=== PATIENT | male | born 1985 | race American Indian/Alaskan Native ===

== ENCOUNTER 2021-04-22 22:02 | Emergency (ER) | payer SELFPAY ==
[2021-04-22 23:16] LABS: Basophils % (Auto) 0.3 % (0.0-1.8); Eosinophils # (Auto) 0.1 K/mm3 (0.0-0.4); Eosinophils % (Auto) 0.6 % (0.0-4.3); Hematocrit 36.6 % (35.5-45.6); Hemoglobin 11.5 gm/dl (11.8-15.2); Lymphocytes # (Auto) 2.2 K/mm3 (1.2-5.4); Lymphocytes % (Auto) 23.7 % (13.4-35.0); Mean Corpuscular HGB Conc 32 % (32-34); Monocytes # (Auto) 0.8 K/mm3 (0.0-0.8); Platelet Count 187 K/mm3 (140-440); Red Blood Count 5.44 M/mm3 (3.65-5.03); Red Cell Distribution Width 15.8 % (13.2-15.2)
[2021-04-22 23:18] LABS: Mean Corpuscular Volume 67 fl (84-94)
[2021-04-22 23:37] LABS: BUN/Creatinine Ratio 12; Blood Urea Nitrogen 12 mg/dL (9-20); Calcium 9.2 mg/dL (8.4-10.2); Hemolysis Index 3
--- NOTE | 2021-04-23 00:32 | Cat Scan Report ---
CT head/brain wo con INDICATION / CLINICAL INFORMATION: fall. TECHNIQUE: Axial CT imaging of brain was obtained without contrast. Coronal and sagittal reformatted imaging obt ained and reviewed. All CT scans at this location are performed using CT dose reduction for ALARA by means of automated exposure control. COMPARISON: None available. FINDINGS: No intracranial hemorrhage, mass, or midline shift noted. No extra-axial fluid collection or suggesti on of acute territorial infarction. Ventricular system and basilar cisterns are unremarkable. Visualized paranasal sinuses demonstrate mucosal thickening throughout both maxillary antra. Mastoid air cells are clear. No calvarial fracture. IMPRESSION: 1. No acute intracranial abnormality. 2. Incidental finding of bilateral maxillary mucosal thickening. Signer Name: Nidia Frias MD Signed: 04/23/2021 12:28 AM Workstation Name: [id number]
--- NOTE | 2021-04-23 00:36 | Cat Scan Report ---
CT cervical spine wo con INDICATION / CLINICAL INFORMATION: fall. TECHNIQUE: Axial CT imaging of the cervical spine was obtained without contrast. Coronal and sagittal reformatte d imaging obtained and reviewed. All CT scans at this location are performed using CT dose reduction for ALARA by means of automated exposure control. COMPARISON: None available. FINDINGS: No cervical spine fracture or traumatic malalignment. However, there is reversal of the normally expe cted lordotic curve which is more than likely either chronic or related to muscle spasm. Surrounding paravertebral soft tissues are unremarkable. Visualized lung apices demonstrate a very small bleb in the right lung apex. Otherwise lung apices are clear. IMPRESSION: 1. No cervical spine fracture or traumatic malalignment. Signer Name: Nidia Frias MD Signed: 04/23/2021 12:31 AM Workstation Name: [id number]
--- NOTE | 2021-04-23 00:59 | Emergency Department Report ---
ED Syncope HPI - General Chief Complaint: Syncope Stated Complaint: SYNCOPAL EPISODE Time Seen by Provider: 04/23/21 00:41 Source: patient - History of Present Illness Initial Comments: 35-year-old male presents to ED following syncopal episode inside of a nightclub. Patient states he got overheated. He reports he had only had about half of an alcoholic drink prior to passing out. Does report smoking marijuana tonight. Patient states he had chicken tenders and Mohawk fries just before the syncopal episode. Patient reports feeling dizzy and lightheaded, denies any headache, chest pain, shortness of breath, nausea or vomiting prior to passing out. Patient states this is the third time that he has passed out. States first episode happened approximately 3 years ago. Patient states, "I get o verheated a lot but I don't usually pass out." Patient reports tobacco, alcohol, marijuana use. He denies any other drug use. Patient states he feels as if he is at his baseline currently. States he had a headache just after arrival in the ED, however now it is resolved. Timing/Prior Episodes: single episode today, remote history Precipitating Factors: Positive: lightheadedness Context: standing Loss of Consciousness: unsure Current Symptoms: back to normal. denies: blurred vision, chest pain, dizziness, headache - Related Data Allergies/Adverse Reactions: Allergies No Known Allergies Allergy (Verified 04/22/21 22:24) ED Review of Systems ROS: Stated complaint: SYNCOPAL EPISODE Other details as noted in HPI Comment: All other systems reviewed and negative Constitutional: denies: chills, fever Respiratory: denies: shortness of breath Cardiovascular: denies: chest pain Gastrointestinal: denies: nausea, vomiting, diarrhea Neurological: headache ED Past Medical Hx - Past Medical History Previous Medical History?: No - Surgical History Past Surgical History?: No ED Physical Exam - General Limitations: No Limitations General appearance: alert, in no apparent distress - Head Head exam: Present: atraumatic, normocephalic - Eye Eye exam: Present: normal appearance, PERRL, EOMI - ENT ENT exam: Present: mucous membranes moist - Neck Neck exam: Present: normal inspection. Absent: tenderness - Respiratory Respiratory exam: Present: normal lung sounds bilaterally. Absent: respiratory distress - Cardiovascular Cardiovascular Exam: Present: regular rate, normal rhythm - GI/Abdominal GI/Abdominal exam: Present: soft. Absent: distended, tenderness - Extremities Exam Extremities exam: Present: normal inspection - Neurological Exam Neurological exam: Present: alert, oriented X3, CN II-XII intact, normal gait. Absent: motor sensory deficit - Psychiatric Psychiatric exam: Present: normal affect, normal mood - Skin Skin exam: Present: warm, dry, intact, normal color ED Course Vital Signs 04/22/21 04/23/21 04/23/21 22:26 00:26 02:36 Temperature 98 F Pulse Rate 89 72 89 Respiratory 16 16 Rate Blood Pressure 90/50 116/70 [Left] O2 Sat by Pulse 98 99 Oximetry 04/23/21 02:37 Temperature Pulse Rate Respiratory 16 Rate Blood Pressure [Left] O2 Sat by Pulse 98 Oximetry ED Medical Decision Making - Lab Data Result diagrams: 04/22/21 22:39 04/22/21 22:39 - EKG Data -: EKG Interpreted by [facility] EKG shows normal: sinus rhythm, axis, intervals, QRS complexes, ST-T waves Rate: normal - EKG Data Interpretation: no acute changes - Radiology Data Radiology results: report reviewed, image reviewed - Medical Decision Making 35-year-old male presents to ED following syncopal episode and nightclub. EKG normal. Labs unremarkable. CT head and C-spine showed no acute findings. Patient given 1 L bolus of IV fluids here in the ED. He is currently feeling much better and feels okay for discharge home. Blood pressure is improved. Outpatient follow-up advised, return precautions given. - Differential Diagnosis Vasovagal syncope, arrhythmia, dehydration, intracranial injury Critical care attestation.: If time is entered above; I have spent that time in minutes in the direct care of this critically ill patient, excluding procedure time. ED Disposition Clinical Impression: Syncope Disposition: DC-01 TO HOME OR SELFCARE Is pt being admited?: No Condition: Stable Instructions: Syncope, [id number], Syncope (ED) Referrals: PRIMARY CAREMD [Primary Care Provider] - 3-5 Days MIYA ROMERO MD [Staff Physician] - 3-5 Days [facility] [Provider Group] - 3-5 Days Time of Disposition: 02:
[2021-04-23] MEDS ORDERED: SODIUM CHLORIDE 0.9% 1000 ML 1,000 ML IV ONE (01:00)
[2021-04-23 02:37] VITALS: BP 116/70
--- NOTE | 2021-04-24 10:38 | Electrocardiograph Report ---
[facility] Test Date: 2021-04-22 Test Time: 22:31:56 Pat Name: CHYNA NASH Department: Room: Gender: M Front Edger: : 1985 Requested By: RENETTA SCHMIDT Order Number: [id number] Reading MD: Cordell Cowan Measurements Intervals Posey Rate: 72 P: 69 VA: 151 QRS: 65 QRSD: 79 T: 57 QT: 370 QTc: 405 Interpretive Statements Sinus rhythm ST elevation suggests acute pericarditis No previous ECG available for comparison Electronically Signed On 04-24-2021 10:38:07 EDT by Cordell Cowan
== END 2021-04-23 02:50 | disposition home or self-care (01) ==
LOC: ED 22:02
DX: R55 Syncope and collapse (principal); Z79.899 Other long term (current) drug therapy
CPT/HCPCS: 36415; 70450; 72125; 80048; 82962; 85025; 93005; 96360; 99284; J7030; 80320; G0480